=== PATIENT | female | born 1935 | race Caucasian/White ===

== ENCOUNTER → 2016-07-25 | Outpatient (CLI) | payer OTHER ==
[~2016-07-25] MED LIST: ALLO100T PO; AMLO2.5T PO; ASPI-461 PO; ATV5X PO; BIOT1CAP3 PO; CLX/20 PO; DSY50 PO; FEXO1TAB49 PO; FURO40TA3 PO; IMDSR/60 PO; METO50TA16 PO; MONT1TAB3 PO; NTRGSL/4 UT; POLYSOL8 OPB; SYMIN160 INH; SYN100 PO; VYT/1010 PO
[2016-07-25 18:23] LABS: BASO % 0.4 %; BASO ABS # 0.03 K/uL (0-0.2); COMPLETE YES; EOS % 3.9 %; HEMATOCRIT 31.5 % (37-47); IG% 0.4 %; LYMPH % 21.2 %; LYMPH ABS # 1.65 K/uL (1.2-3.4); MEAN CELL VOLUME 95.2 fL (80-100); MEAN CORPUSCULAR HEMOGLOBIN 29.6 pg (25-34); MEAN CORPUSCULAR HGB CONC 31.1 g/dl (32-36); MEAN PLATELET VOLUME 10.9 fL (7.4-10.4); MONO % 6.8 %; NEUT % 67.3 %; PLATELET COUNT 175 K/uL (130-400); RED BLOOD COUNT 3.31 M/uL (4.2-5.4); WHITE BLOOD COUNT 7.78 K/uL (4.8-10.8)
[2016-07-25 18:36] LABS: ALT/SGPT 19 U/L (12-78); AST/SGOT 16 U/L (15-37); BLOOD UREA NITROGEN 35 mg/dl (7-18); CALCIUM 8.4 mg/dl (8.5-10.1); CARBON DIOXIDE 31 mmol/L (21-32); CHLORIDE 106 mmol/L (98-107); GLUCOSE 95 mg/dl (70-99); HDL CHOLESTEROL 43 mg/dl; POTASSIUM 4.8 mmol/L (3.5-5.1); SODIUM 145 mmol/L (136-145); URIC ACID 5.2 mg/dl (2.6-7.2)
[2016-07-25 18:40] LABS: ALB/GLOB RATIO 0.9 (0.9-2); ALKALINE PHOSPHATASE 75 U/L (45-117); CHOLESTEROL 125 mg/dl (0-200); CHOLESTEROL/HDL RATIO 2.9; LDL CHOLESTEROL CALCULATED 50 mg/dl; THYROID STIMULATING HORMONE 0.665 uIu/ml (0.300-4.500); TRIGLYCERIDES 161 mg/dl (0-150); VERY LOW DENSITY LIPOPROT CALC 32 mg/dl
[2016-07-26 06:19] LABS: ESTIMATED AVERAGE GLUCOSE 123 mg/dl; HA1C FLAG Normal (Normal)
--- NOTE | 2016-08-30 09:37 | CODING QUERY MEDICAL NECESSITY ---
SUPPORTING DIAGNOSIS NEEDED Dr. Kim, A supporting diagnosis is required for the test/procedure performed on this patient in order for us to be reimbursed by the patient's insurance. Please provide a supporting diagnosis for the following test/procedure listed below next to the test name along with your signature. *If there is no additional diagnosis for this patient that would support the following test/procedure please document that below next to the test/procedure. Test(s)/Procedure(s) that require a supporting diagnosis: * ([id number]) B12 VITAMIN LEVEL DIAGNOSIS: DATE OF SERVICE: 07/25/16 Provider Signature: Date: Thank you Rome Saucedo [facility] Information Management Once completed, please kindly fax back to [phone] For questions please call [phone]
== END | disposition home or self-care (01) ==
LOC: C.LABMFLN 14:24
PROVIDERS: ATTEND Family Medicine
DX: I10 Essential (primary) hypertension (principal); E78.5 Hyperlipidemia, unspecified; E03.9 Hypothyroidism, unspecified; R73.01 Impaired fasting glucose; D64.9 Anemia, unspecified; R41.3 Other amnesia

== ENCOUNTER → 2017-02-05 | Outpatient (CLI) | payer OTHER ==
[2017-02-05 18:19] LABS: BLOOD UREA NITROGEN 38 mg/dl (7-18); BUN/CREATININE RATIO 15.3 (10-20); CALCIUM 8.3 mg/dl (8.5-10.1); CARBON DIOXIDE 28 mmol/L (21-32); CHLORIDE 106 mmol/L (98-107); GLUCOSE 93 mg/dl (70-99); PHOSPHORUS 3.1 mg/dl (2.5-4.9); POTASSIUM 3.6 mmol/L (3.5-5.1); SODIUM 140 mmol/L (136-145)
[2017-02-05 18:38] LABS: BASO % 0.1 %; BASO ABS # 0.01 K/uL (0-0.2); COMPLETE YES; EOS % 3.6 %; HEMATOCRIT 31.5 % (37-47); IG% 0.5 %; LYMPH ABS # 1.42 K/uL (1.2-3.4); MEAN CORPUSCULAR HEMOGLOBIN 28.7 pg (25-34); MEAN CORPUSCULAR HGB CONC 30.5 g/dl (32-36); MEAN PLATELET VOLUME 11.3 fL (7.4-10.4); MONO % 6.9 %; NEUT % 71.9 %; PLATELET COUNT 168 K/uL (130-400); RED BLOOD COUNT 3.35 M/uL (4.2-5.4); WHITE BLOOD COUNT 8.37 K/uL (4.8-10.8)
[2017-02-06 08:22] LABS: ESTIMATED AVERAGE GLUCOSE 131 mg/dl; HA1C FLAG Normal (Normal)
== END | disposition home or self-care (01) ==
LOC: C.LABMFLN 15:04
PROVIDERS: ATTEND Family Medicine
DX: J02.9 Acute pharyngitis, unspecified (principal); D64.9 Anemia, unspecified; N18.4 Chronic kidney disease, stage 4 (severe); R73.03 Prediabetes

== ENCOUNTER → 2017-07-24 | Outpatient (CLI) | payer OTHER | END | disposition home or self-care (01) | LOC: C.LABMFLN 16:11 | PROVIDERS: ATTEND Family Medicine | DX: J02.9 Acute pharyngitis, unspecified (principal) ==

== ENCOUNTER → 2017-08-20 | Outpatient (CLI) | payer OTHER ==
[2017-08-20 18:26] LABS: ALBUMIN 3.1 gm/dl (3.4-5.0); ALKALINE PHOSPHATASE 67 U/L (45-117); ALT/SGPT 17 U/L (12-78); AST/SGOT 18 U/L (15-37); CHOLESTEROL 130 mg/dl (0-200); LDL CHOLESTEROL CALCULATED 61 mg/dl; TOTAL PROTEIN 6.6 gm/dl (6.4-8.2); URIC ACID 5.5 mg/dl (2.6-7.2)
== END | disposition home or self-care (01) ==
LOC: C.LABMFLN 11:54
PROVIDERS: ATTEND Family Medicine
DX: E78.5 Hyperlipidemia, unspecified (principal); E03.9 Hypothyroidism, unspecified; M10.9 Gout, unspecified